=== PATIENT | female | born 1940 | race Caucasian/White ===

== ENCOUNTER → 2017-09-24 | Outpatient (CLI) | payer OTHER, MEDICARE ==
[~2017-09-24] VITALS: Ht 154.9 cm; Wt 64.4 kg
[~2017-09-24] MED LIST: ACCUPRIL40 MG PO; ACIDOPHILUS1 EAC2 PO; ADVIL100 M2 PO; ALEVE COLD & S1 EACH PO; ALTACE10 MG PO; ASPIR 8181 MG PO; CALCIUM 600 +1 EAC1 PO; CLARITIN10 MG PO; DILTIAZEM 24HR240 MG PO; ENDUR-ACIN500 MG PO; FOSAMAX 70 MG T70 MG PO; GLUCOVANCE 2.51 EAC1 PO; HUMALOG100 UNIT/2 SQ; HYDROCHLOROTH12.5 M2 PO; JANUVIA100 MG PO; LEVEMIR SUBQ; LOSARTAN POTAS100 MG PO; MAGNESIUM OXID400 MG PO; METFORMIN HCL500 MG PO; NORVASC10 MG PO; OMEPRAZOLE 20 M20 M1 PO; OXYBUTYNIN 5 MG5 M2 PO; PRAVACHOL20 MG PO; STOOL SOFTENER1 EAC2 PO; ZOCOR20 MG PO; [UNRECOGNIZED DRUG - CODE] PO
--- NOTE | ~2017-09-24 | HPC ---
[facility] [address] [place] [address] PAIN MANAGEMENT CONSULTATION Name: VIVIENNERIO Room #: REG KWABENA Zulma#: [id number] Admission: 09/24/17 Attend Phys: Danny Boss MD Discharge: Date of : 36 Report #: [id number] THIS REPORT FOR: //name// CC: ALEJANDRINA Boss DATE OF SERVICE: 09/24/2017 CHIEF COMPLAINT: Low back pain. HISTORY OF PRESENT ILLNESS: The patient is a 77-year-old female who has been referred to the Pain Clinic for evaluation. The patient is experiencing pain in her low back down into the area of her waist. Notes that the pain is worse with walking as well as with standing. Feels that the pain continues to be quite problematic and "takes her breath away." She has had this problem for the last 2 years and it has gotten more problematic. She describes it as a constant, shooting, aching, and throbbing pain. Rates it as a 5/10 at this point. Notes that the pain is worsened while doing housework. Bending and twisting exacerbates it. She has used heat and notes that the pain improves somewhat when she "lies down." The patient has been told that she has spinal stenosis in her low back area. The patient is status post 3-level lumbar laminectomy. She did have pain radiating down into her legs prior to the surgery, this portion has improved. The patient is having significant amount of back pain. She does experience some numbness in her feet. She has undergone physical therapy. ALLERGIES: No known drug allergies. MEDICATIONS: Ramipril 20 mg, magnesium 400 mg, omeprazole 20 mg, Caltrate 600/ 1500 mg tablets b.i.d., acidophilus capsule, amlodipine 5 mg, Humalog 15 units subcutaneous with meals, Levemir 34 units subcutaneous at bedtime, simvastatin 20 mg in the evening, Celebrex 100 mg with food b.i.d., metformin 1000 mg daily, Bactrim DS b.i.d., ____ 10 mg 4 times a day. PAST MEDICAL HISTORY: Hemorrhoids, loss of bladder control, diabetes, hypertension, hypercholesterolemia. PAST SURGICAL HISTORY: Right rotator cuff repair in 2016, back surgery in June 2017, total right knee replacement in 2016. SOCIAL HISTORY: She is a retired x-ray septic technician. She has now been working for the last 15 years. REVIEW OF SYSTEMS: Wears glasses, blurred vision, diabetes, lightheadedness, dizziness, generally good health, [place] [address] PAIN MANAGEMENT CONSULTATION Name: RIO PALAFOX Room #: REG [facility] Zulma#: [id number] Admission: 09/24/17 Attend Phys: Danny Boss MD Discharge: Date of : 36 Report #: [id number] LABORATORY DATA: No new laboratory values are available at the time of our interview. PAIN CLINIC ASSESSMENT: 1. History of osteoarthritis: She has arthritic changes in her shoulders 2. Rheumatoid arthritis: Not applicable. 3. Height 5 feet 1 inch, weight 142 pounds, BMI is 26. 4. Vital signs: Blood pressure 162/69, pulse 86, respiratory rate 16, room air saturation 99%. 5. Pain intensity: 5/10. 6. Fall risk: The patient has not fallen in the last 3 months. 7. Blood thinner: The patient is not on a blood thinning medication. 8. History of hypertension: The patient is being treated for hypertension. 9. Opioid therapy greater than 6 weeks: The patient is not on an opioid contract. 10. Risk assessment tool: Low for use of opioids. 11. Functional assessment tool. 12. Recreational drug use: The patient denies use of recreational drugs. 13. Tobacco: The patient is a former smoker, smoked one-quarter pack of cigarettes per day, has smoked for 40 years. 14. Alcohol: The patient denies use of alcoholic beverages. PHYSICAL EXAMINATION: GENERAL: The patient is a well-developed, well-nourished, white female. Appears her stated age. She is alert and oriented x 3. Affect is appropriate. Speech is fluent. HEENT: Normocephalic, atraumatic. Extraocular eye muscles intact. Sclerae nonicteric. Mucous membranes are moist. Hearing is within normal limits. NECK: Without adenopathy or JVD. LUNGS: Clear to auscultation without rales or rhonchi. ABDOMEN: Protuberant, soft. MUSCULOSKELETAL: Upper extremity muscle strength is judged to be 5/5 for the major muscle groups in the upper extremity with symmetry without neurologic complaints. Lower extremity, the patient has pain in the low back area. Notes some pain and discomfort in the area of her waistline. She has some pain that radiates down into her low back area. Notes worsening of pain with prolonged walking and standing. She has been experiencing some shooting, aching, throbbing, sharp discomfort. Notes worsening of pain with bending, improvement in pain with sitting and use of heat. IMPRESSION: 1. Low back pain with pain that radiates into the back area with some numbness and tingling down into the feet, status post lumbar decompression L2-L3, L3-L4, L4-L5. 2. Hemorrhoids. 3. Loss of bladder control. [address] [place] [address] PAIN MANAGEMENT CONSULTATION Name: RIO PALAFOX [facility] #: [facility] [id number] Admission: 09/24/17 Attend Phys: Danny Boss MD Discharge: Date of : 36 Report #: [id number] 4. Diabetes. 5. Hypertension. 6. Hypercholesterolemia RECOMMENDATIONS: We discussed treatment options with the patient. Risks and benefits of an epidural steroid injection were discussed. The patient continues to have some pain in her back in the axial area. Notes some discomfort down into her feet as well. At this juncture, we have discussed the possible options. We will proceed with an epidural steroid injection to the affected area. Risks and benefits of an epidural steroid injection were discussed. Possible complications of the procedure, which could include but are not limited to infection, increased muscle soreness, headache, worsening of pain, no improvement in pain, paralysis, spinal headache were discussed. The patient elects to proceed. PROCEDURE NOTE: The patient was taken to the procedure area. She was assisted in getting on the examination table. Her back was sterilely prepped with a Betadine solution. A pillow was placed under her abdomen to bolster and improve her positioning. Anterior, posterior as well as lateral viewing with fluoroscopy was performed. A 0.25% bupivacaine was infiltrated into the back area. The left paracentral area was identified. A 17-gauge Tuohy with loss of resistance technique was used to gain access to the epidural space. There was no CSF, heme or paresthesia. Total of 80 mg Depo-Medrol, 40 mg triamcinolone, and 2 mL of 0.25% bupivacaine was used. The patient's pain level decreased to zero at the time of discharge. She tolerated the procedure well. She will follow up in the future as needed. Less than 15 seconds fluoroscopy time was used. We would like to thank you for letting us participate in her care. We hope she continues to improve. By: [phone] Danny Boss MD /nt
[2017-09-24 09:20] VITALS: BP 162/69
== END | disposition home or self-care (01) ==
LOC: PAIN 07:01
DX: M54.16 Radiculopathy, lumbar region (principal); I10 Essential (primary) hypertension; E11.9 Type 2 diabetes mellitus without complications; K64.9 Unspecified hemorrhoids; E78.00 Pure hypercholesterolemia, unspecified; M19.90 Unspecified osteoarthritis, unspecified site; N32.89 Other specified disorders of bladder; Z79.4 Long term (current) use of insulin; Z98.890 Other specified postprocedural states; Z87.891 Personal history of nicotine dependence; Z79.899 Other long term (current) drug therapy; Z79.84 Long term (current) use of oral hypoglycemic drugs; Z96.651 Presence of right artificial knee joint

== ENCOUNTER → 2017-12-10 | Outpatient (CLI) | payer OTHER, MEDICARE ==
[~2017-12-10] VITALS: Ht 154.9 cm; Wt 68.5 kg
[~2017-12-10] MED LIST changes: +HYDROCODON-ACE1 EAC7 PO; +VITAMIN D3400 UNIT PO
[2017-12-10 14:29] VITALS: BP 140/82
== END ==
LOC: PAIN 12-09 12:34
DX: M54.5 Low back pain (principal); I10 Essential (primary) hypertension; Z79.899 Other long term (current) drug therapy; Z87.891 Personal history of nicotine dependence